=== PATIENT | male | born 1960 | race Hispanic/Latino ===

== ENCOUNTER 2017-04-20 11:02 | Emergency (ER) | payer OTHER ==
--- NOTE | 2017-04-20 13:58 | XRay Report ---
RIGHT ANKLE RADIOGRAPHS INDICATION: Pain, edema, trauma. COMPARISON: None similar. FINDINGS: AP, lateral and oblique right ankle radiographs demonstrate an oblique distal fibular metadiaphyseal fracture with possible extension to the distal talofibular joint. Cortical offset of approximately 2 mm laterally. An approximately 1.3 cm distal fibular smooth cortical bulge/convexity medially incidentally noted approximately 6.5 cm proximal to the lateral malleolus. Distal tibia, medial malleolus, ankle mortise and talar dome contour appear preserved. Plantar calcaneal spur. Demineralized bones. Diffuse ankle soft tissue swelling, lateral much greater than medial. CONCLUSION: Right distal fibular acute spiral fracture with overlying soft tissue swelling and various other incidental findings, as above. Please correlate. Thank you for the opportunity to participate in this patient's care.
[2017-04-20] MEDS ORDERED: ZOFRAN ODT PO ONE (15:34)
[2017-04-20] MEDS ORDERED: PERCOCET 5/325 PO ONE (15:34)
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
[2017-04-20 17:26] VITALS: BP 128/88
== END 2017-04-20 17:33 | disposition home or self-care (01) ==
LOC: ED 11:02
DX: S82.891A Other fracture of right lower leg, initial encounter for closed fracture (principal); W00.0XXA Fall on same level due to ice and snow, initial encounter; Y93.89 Activity, other specified; Y92.89 Other specified places as the place of occurrence of the external cause; Y99.8 Other external cause status
CPT/HCPCS: 99284; Q0162

== ENCOUNTER 2017-05-09 09:56 | Emergency (ER) | payer OTHER ==
[2017-05-09 11:10] LABS: Basophils # (Auto) 0.1 K/mm3 (0.0-0.1); Basophils % (Auto) 0.9 % (0.0-1.8); Eosinophils # (Auto) 0.2 K/mm3 (0.0-0.4); Eosinophils % (Auto) 1.2 % (0.0-4.3); Hemoglobin 13.6 gm/dl (11.8-15.2); Lymphocytes # (Auto) 1.7 K/mm3 (1.2-5.4); Lymphocytes % (Auto) 10.9 % (13.4-35.0); Mean Corpuscular HGB Conc 34 % (32-34); Mean Corpuscular Hemoglobin 32 pg (28-32); Mean Corpuscular Volume 94 fl (84-94); Monocytes # (Auto) 0.7 K/mm3 (0.0-0.8); Monocytes % (Auto) 4.5 % (0.0-7.3); Platelet Count 354 K/mm3 (140-440); Red Blood Count 4.26 M/mm3 (3.65-5.03); Red Cell Distribution Width 13.1 % (13.2-15.2)
[2017-05-09 11:14] LABS: Alanine Aminotransferase 22 units/L (7-56); Albumin 4.3 g/dL (3.9-5); BUN/Creatinine Ratio 16; Blood Urea Nitrogen 11 mg/dL (9-20); Calcium 8.7 mg/dL (8.4-10.2); Hemolysis Index 9
[2017-05-09] MEDS ORDERED: BOOSTRIX IM ONE (11:48)
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
--- NOTE | 2017-05-09 12:06 | Cat Scan Report ---
CT HEAD WITHOUT CONTRAST: HISTORY: Fall with head injury. TECHNIQUE: Sequential CT images without contrast. FINDINGS: Images obtained show bilateral prominence of the sulci and ventricles. There are no abnormal intra- or extra-axial blood or fluid collections. There are no focal masses or evidence of mass effect. The gibbons white matter differentiation appears within normal limits. Regions of periventricular decreased attenuation are consistent with microangiopathic ischemic disease. The posterior fossa structures including the fourth ventricle, cerebellum, and brainstem appear normal. IMPRESSION: Evidence of atrophy and microangiopathic ischemic disease. No acute intracranial process noted.
--- NOTE | 2017-05-09 12:07 | Cat Scan Report ---
CT SCAN OF THE CERVICAL SPINE: HISTORY: Fall with neck injury. TECHNIQUE: Contiguous 1.25 mm axial images of the cervical spine were obtained. Sagittal and coronal reformatted images. FINDINGS: There is normal alignment of the cervical spine. The body, pedicles and posterior ligaments appear normal. No evidence of fracture or subluxation is seen. Moderate degenerative disc disease is identified at C5-6. The spinal canal appears normal. The prevertebral soft tissues appear normal. IMPRESSION: Cervical spondylosis. No acute process is noted.
[2017-05-09] MEDS ORDERED: VITAMIN B-1 100 MG, FOLVITE 1 MG, INFUVITE 10 ML in NACL 0.9% 1000 ML 1,000 ML IV ONE (13:00)
[2017-05-09 15:14] VITALS: BP 118/68
== END 2017-05-09 15:39 | disposition home or self-care (01) ==
LOC: ED 09:56
DX: S05.12XA Contusion of eyeball and orbital tissues, left eye, initial encounter (principal); S00.81XA Abrasion of other part of head, initial encounter; S09.8XXA Other specified injuries of head, initial encounter; E87.1 Hypo-osmolality and hyponatremia; W10.8XXA Fall (on) (from) other stairs and steps, initial encounter; Y93.89 Activity, other specified; Y92.89 Other specified places as the place of occurrence of the external cause; Y99.8 Other external cause status
CPT/HCPCS: 36415; 70450; 72125; 80053; 85025; 90471; 90715; 96365; 96366; 99284; G0480; J3411; J7030; 80320

== ENCOUNTER 2017-10-04 07:25 | Outpatient (CLI) | payer OTHER ==
--- NOTE | 2017-10-04 09:23 | XRay Report ---
LEFT HAND, 3 views: History: Left hand pain. No comparison. Bone mineralization is borderline. A mildly comminuted fracture is identified through the second metacarpal neck. There is no obvious extension of fracture lines to the joint space. No calcified callus is identified suggesting a relatively acute injury. Moderate osteoarthritic changes are noted at the base of the thumb. IMPRESSION: Fracture, second metacarpal.
== END 2017-10-04 07:26 | disposition home or self-care (01) ==
LOC: XRAY 07:25
PROVIDERS: ATTEND Orthopaedic Surgery
DX: S62.301A Unspecified fracture of second metacarpal bone, left hand, initial encounter for closed fracture (principal); X58.XXXA Exposure to other specified factors, initial encounter; Y93.89 Activity, other specified; Y92.89 Other specified places as the place of occurrence of the external cause; Y99.8 Other external cause status

== ENCOUNTER 2020-11-09 08:16 | Emergency (ER) | payer OTHER ==
[2020-11-09 10:08] VITALS: BP 146/90
--- NOTE | 2020-11-09 10:27 | Emergency Department Report ---
ED General Adult HPI - General Chief complaint: Laceration/Recheck/Suture Stated complaint: SUTURE REMOVAL IN HEAD Time Seen by Provider: 11/09/20 10:16 Source: patient Mode of arrival: Ambulatory Limitations: No Limitations - History of Present Illness Initial comments: 59-year-old male patient presents for staple removal today. Patient states he had the debra placed at [facility] approximately 7 to 8 days ago after head injury. He denies any fever/chills/sweats, purulent drainage, swelling to the area, or increased pain. Patient states he is feeling well. - Related Data Previous Rx's Medication Instructions Recorded Last Taken Type Ibuprofen [Motrin 800 MG tab] 800 mg PO Q8HR PRN #30 tablet 12/02/14 Unknown Rx cephALEXin [Keflex] 250 mg PO Q6HR #28 capsule 12/02/14 Unknown Rx HYDROcodone/APAP 5-325 [[place] 1 each PO Q6HR PRN #20 tablet 04/20/17 Unknown Rx 5/325] Naproxen 500 mg PO BID PRN #30 tablet 04/20/17 Unknown Rx Allergies Allergy/AdvReac Type Severity Reaction Status Date / Time No Known Allergies Allergy Unverified 12/02/14 17:33 ED Review of Systems ROS: Stated complaint: SUTURE REMOVAL IN HEAD Other details as noted in HPI Constitutional: denies: chills, diaphoresis, fever, malaise, weakness Skin: denies: rash, change in color Neurological: denies: headache ED Past Medical Hx - Past Medical History Previous Medical History?: No - Surgical History Past Surgical History?: No - Social History Smoking Status: Never Smoker Substance Use Type: Alcohol - Medications Home Medications: Home Medications Medication Instructions Recorded Confirmed Last Taken Type Ibuprofen [Motrin 800 MG tab] 800 mg PO Q8HR PRN #30 tablet 12/02/14 Unknown Rx cephALEXin [Keflex] 250 mg PO Q6HR #28 capsule 12/02/14 Unknown Rx HYDROcodone/APAP 5-325 [[place] 1 each PO Q6HR PRN #20 tablet 04/20/17 Unknown Rx 5/325] Naproxen 500 mg PO BID PRN #30 tablet 04/20/17 Unknown Rx ED Physical Exam - General Limitations: No Limitations General appearance: alert, in no apparent distress - Head Head exam: Present: normocephalic, other. Absent: atraumatic (Healing laceration with large scabbed over area noted to left occipital region of scalp; [address] no surrounding erythema or purulent drainage noted;) - Eye Eye exam: Present: normal appearance - Neck Neck exam: Absent: tenderness - Respiratory Respiratory exam: Absent: respiratory distress - Cardiovascular Cardiovascular Exam: Present: regular rate - Neurological Exam Neurological exam: Present: alert, oriented X3 - Psychiatric Psychiatric exam: Present: normal affect, normal mood - Skin Skin exam: Present: warm, dry, normal color. Absent: rash ED Course Vital Signs 11/09/20 10:03 Temperature 98 F Pulse Rate 67 Respiratory 16 Rate Blood Pressure 146/90 [Right] O2 Sat by Pulse 98 Oximetry - Procedure Description Procedures done: 7 debra removed from posterior scalp. Minimal bleeding occurred. No purulent drainage or wound dehiscence noted. No cellulitic changes noted. Patient tolerated procedure well without any immediate complications. ED Medical Decision Making - Medical Decision Making 59-year-old male patient presents for staple removal today. Patient states he had the debra placed at [facility] approximately 7 to 8 days ago after head injury. He denies any fever/chills/sweats, purulent drainage, swelling to the area, or increased pain. Patient states he is feeling well. [place] removed without any immediate complications. Patient tolerated procedure well. Discussed continued wound care and signs and symptoms that should prompt immediate return to the emergency department in detail with patient verbalized understanding. He is well-appearing and stable for discharge home. Patient to follow-up with his primary care provider in 3 to 5 days. Critical care attestation.: If time is entered above; I have spent that time in minutes in the direct care of this critically ill patient, excluding procedure time. ED Disposition Clinical Impression: Removal of debra Disposition: DC-01 TO HOME OR SELFCARE Is pt being admited?: No Condition: Stable Instructions: Wound Closure Removal, Care After Referrals: PRIMARY CARE, [Referring] - 3-5 Days
== END 2020-11-09 11:02 | disposition home or self-care (01) ==
LOC: ED 08:16
DX: Z48.02 Encounter for removal of sutures (principal); S01.01XD Laceration without foreign body of scalp, subsequent encounter; X58.XXXD Exposure to other specified factors, subsequent encounter